=== PATIENT | male | born 1950 | race Caucasian/White ===

== ENCOUNTER → 2020-05-30 | Outpatient (CLI) | payer MEDICARE, OTHER ==
--- NOTE | 2020-05-30 12:31 | Diagnostic Imaging Report ---
EXAMINATION: Bilateral knees at 10:05 a.m. INDICATION: Knee pain. Four views of the right knee and three views of the left knee were obtained. There are no prior studies available for comparison. There is no fracture, dislocation or acute bony abnormality evident. There is at least moderate narrowing of all 3 compartments of the right knee joint and the medial compartment and patellofemoral space on the left. The lateral compartment on the left is fairly well-maintained. There is also chondrocalcinosis of both menisci. The soft tissues are unremarkable. IMPRESSION: 1. There is no evidence for an acute bony abnormality. 2. 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 Dictated by: Dictated on workstation # [id number]
== END ==
LOC: RAD FS 09:58
PROVIDERS: ATTEND Nurse Practitioner
DX: M17.0 Bilateral primary osteoarthritis of knee (principal); M11.261 Other chondrocalcinosis, right knee; M11.262 Other chondrocalcinosis, left knee